=== PATIENT | female | born 1990 | race African-American/Black ===

== ENCOUNTER 2021-04-28 12:56 | Emergency (ER) | payer MEDICAID ==
[~2021-04-28] VITALS: Ht 162.6 cm; Wt 113.0 kg
[2021-04-28] MEDS ORDERED: KETOROLAC 30MG/ML VIAL IM STA (13:30)
[2021-04-28] MEDS ORDERED: PENICILLIN G BENZATHINE 1,200,000 UNITS/2ML SYR IM ONE (13:30)
[2021-04-28] MEDS ORDERED: AMOX-494 PO (13:59)
[2021-04-28] MEDS ORDERED: IBUP-2029 PO (13:59)
[2021-04-28 15:08] VITALS: BP 127/87
== END 2021-04-28 15:17 | disposition home or self-care (01) ==
LOC: ER 12:56
DX: J02.9 Acute pharyngitis, unspecified (principal)
CPT/HCPCS: 81025; 87070; 87430; 96372; 99284; J0561; J1885